=== PATIENT | male | born 1955 | race Caucasian/White ===

== ENCOUNTER 2018-05-03 14:10 | Emergency (ER) | payer OTHER, BC ==
[~2018-05-03 14:10] MED LIST: HYDROCODONE/APAP 5/325 TAB PO SCH
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
[2018-05-03] MEDS ORDERED: IOPAMIDOL (ISOVUE 370) 100 ML BTL IV ONE (14:29)
[2018-05-03 16:13] VITALS: BP 132/85
[2018-05-03] MEDS ORDERED: RIVAROXABAN 15 MG TAB PO ONE (19:37)
[2018-05-03] MEDS ORDERED: RIVAROXABAN 10 MG TAB PO ONE (20:00)
== END 2018-05-03 16:12 | disposition home or self-care (01) ==
LOC: EDUNIT#
DX: S22.22XA Fracture of body of sternum, initial encounter for closed fracture (principal); S20.20XA Contusion of thorax, unspecified, initial encounter; Z86.718 Personal history of other venous thrombosis and embolism; V43.52XA Car driver injured in collision with other type car in traffic accident, initial encounter; Y92.410 Unspecified street and highway as the place of occurrence of the external cause; Y93.9 Activity, unspecified; Y99.8 Other external cause status
CPT/HCPCS: 82435-PO; 82565-PO; 82947-PO; 84132-PO; 84295-PO; 84520-PO; 85014-PO; Q9967